=== PATIENT | female | born 1985 | race Two or more races ===

== ENCOUNTER 2018-11-28 19:42 | Emergency (ER) | payer OTHER ==
[~2018-11-28] VITALS: Ht 157.5 cm; Wt 47.6 kg
[2018-11-28] MEDS ORDERED: PERCOCET 5-3251 EACH (20:20)
== END 2018-11-28 21:01 | disposition home or self-care (01) ==
LOC: ER 19:42
DX: Z41.1 Encounter for cosmetic surgery (principal)